=== PATIENT | male | born 1950 | race Caucasian/White ===

== ENCOUNTER 2019-02-12 07:34 | Observation (INO) | payer MEDICARE, OTHER ==
[2019-02-12] VITALS (15 sets, daily range): BP systolic 110–140; BP diastolic 60–75
[~2019-02-12] VITALS: Ht 180.3 cm; Wt 103.0 kg
--- NOTE | ~2019-02-12 | H ---
[address] [address] HISTORY AND PHYSICAL Name: MELONIE MIMS Room: [address] Courtney Zuniga#: [id number] Admission: 02/12/19 Attend Phys: Eitan Frias MD, Discharge: 02/13/19 Date of : 50 Report #: [id number] THIS REPORT FOR: //name// Please refer to the History and Physical performed in the physician's office. By: 0638Medical Records Staff CARMINA /PENNIE
[2019-02-12] MEDS ORDERED: RAMIPRIL5 MG PO (08:15)
[2019-02-12] MEDS ORDERED: ASA81BEC PO (08:15)
[2019-02-12 08:17] LABS: HEMATOCRIT 44.1 % (42.0-52.0); HEMOGLOBIN 15.5 gm/dL (14.0-18.0); MCH 31.7 pg (26.0-34.0); MCHC 35.2 g/dL (28.0-37.0); MPV 7.7 fl. (7.2-11.1); RBC 4.9 mil/uL (4.50-6.00); RDW-CV 13.9 % (10.5-14.5); WBC 8.5 thou/uL (4.0-11.0)
[2019-02-12 08:27] LABS: ANION GAP 9 mmol/L (7-16); APTT 25.7 Seconds (25.0-31.3); BUN 14 mg/dL (7-18); CALCIUM 8.6 mg/dL (8.5-10.1); CHLORIDE 103 mmol/L (98-107); CO2 27 mmol/L (21-32); CREATININE 1.1 mg/dL (0.6-1.3); GLUCOSE 130 mg/dL (70-99); PROTIME 10.7 Seconds (9.20-11.50); SODIUM 139 mmol/L (136-145)
[2019-02-12 08:40] LABS: ALBUMIN 3.8 g/dL (3.4-5.0); ALKALINE PHOSPHATASE 95 U/L (46-116); CHOLESTEROL 130 mg/dL (<200); HDL CHOLESTEROL 34 mg/dL (>40); LDL CHOLESTEROL 67 mg/dL (<100); SGOT 19 U/L (15-37); SGPT 32 U/L (30-65); TC:HDL 3.8 Ratio (Not establshd); TOTAL BILIRUBIN 0.9 mg/dL (<0.1-1.0); TOTAL PROTEIN 7.4 g/dL (6.4-8.2); TRIGLYCERIDE 148 mg/dL (<150); VLDL 30 mg/dL (<40)
[2019-02-12 08:44] LABS: SERUM ASSESSMENT Clear
--- NOTE | 2019-02-12 11:04 | EKG ---
[place] [address] ELECTROCARDIOGRAM REPORT Name: MELONIE MIMS Room: [facility]#: [id number] Admission: 02/12/19 Attend Phys: Eitan Frias MD, Discharge: Date of : 50 Report #: [id number] THIS REPORT FOR: //name// [facility] Test Date: 2019-02-12 Test Time: 08:02:54 Pat Name: MELONIE MIMS Department: Room: Gender: M Instructional Systems Specialist: RT : 1950 Requested By: Eitan Frias Order Number: [id number] Hemal MD: David Nieves Measurements Intervals [place] Rate: 64 P: 14 PA: 146 QRS: -9 QRSD: 110 T: 50 QT: 416 QTc: 430 Interpretive Statements Sinus rhythm RSR' in V1 or V2, right VCD or RVH Baseline wander in lead(s) V3 No previous ECG available for comparison Electronically Signed On 02-12-2019 11:04:12 BARGE ENGINEER by David Nieves [email or web address] <ELECTRONICALLY SIGNED> By: David Nieves MD, [facility] 02/12/19 1104 1 1 David Nieves MD, [facility] /EPI
--- NOTE | 2019-02-12 15:42 | EKG ---
[place] [address] ELECTROCARDIOGRAM REPORT Name: MELONIE MIMS Room: [address]R.#: [id number] Admission: 02/12/19 Attend Phys: Eitan Frias MD, Discharge: Date of : 50 Report #: [id number] THIS REPORT FOR: //name// [facility] Test Date: 2019-02-12 Test Time: 13:20:23 Pat Name: MELONIE MIMS Department: Room: [facility] Gender: M Hotel Operation Manager: RT : 1950 Requested By: Eitan Frias Order Number: [id number] Hemal MD: Eitan Frisa Measurements Intervals [place] Rate: 53 P: 39 SC: 162 QRS: -9 QRSD: 105 T: 54 QT: 450 QTc: 423 Interpretive Statements Sinus rhythm RSR' in V1 or V2, right VCD Compared to ECG 02/12/2019 08:02:54 No significant changes Electronically Signed On 02-12-2019 15:42:37 PAYLOADER OPERATOR by Eitan Frias [email or web address] <ELECTRONICALLY SIGNED> By: Eitan Frias MD, [facility] 02/12/19 1542 1320 1320 Eitan Frias MD, FAC /EPI
[2019-02-13] VITALS: BP 134/73
[2019-02-13 04:00] VITALS: BP 139/78
[2019-02-13 05:46] LABS: HEMATOCRIT 41.8 % (42.0-52.0); HEMOGLOBIN 14.3 gm/dL (14.0-18.0); MCH 31.5 pg (26.0-34.0); MCHC 34.3 g/dL (28.0-37.0); MCV 91.6 fL (80.0-100.0); MPV 7.7 fl. (7.2-11.1); RBC 4.56 mil/uL (4.50-6.00); RDW-CV 13.7 % (10.5-14.5); WBC 10.4 thou/uL (4.0-11.0)
[2019-02-13 06:06] LABS: ALBUMIN 3.4 g/dL (3.4-5.0); CALCIUM 8.2 mg/dL (8.5-10.1); CREATININE 1.1 mg/dL (0.6-1.3); POTASSIUM 4.2 mmol/L (3.5-5.1); TOTAL BILIRUBIN 0.9 mg/dL (<0.1-1.0); TOTAL PROTEIN 6.6 g/dL (6.4-8.2)
[2019-02-13 06:09] LABS: TROPONIN-I LEVEL 0.99 ng/mL (<0.06)
[2019-02-13 08:17] VITALS: BP 132/76
[2019-02-13 10:09] VITALS: BP 132/76
[2019-02-13] MEDS ORDERED: EFFIENT10 MG PO (11:22)
[2019-02-13 11:29] VITALS: BP 132/76
[2019-02-13] MEDS ORDERED: LIPITOR40 MG PO (11:42)
[2019-02-13] MEDS ORDERED: PRINIVIL5 MG PO (11:46)
[2019-02-13] MEDS ORDERED: NITROSTAT0.4 M1 SUBLING (11:53)
--- NOTE | 2019-02-13 16:58 | EKG ---
[place] [address] ELECTROCARDIOGRAM REPORT Name: MELONIE MIMS Room: [address]#: [id number] Admission: 02/12/19 Attend Phys: Eitan Frias MD, Discharge: 02/13/19 Date of : 50 Report #: [id number] THIS REPORT FOR: //name// [facility] Test Date: 2019-02-13 Test Time: 05:05:22 Pat Name: MELONIE MIMS Department: Room: [facility] Gender: M Boat Worker: RONDA : 1950 Requested By: Eitan Frias Order Number: [id number] Hemal MD: David Nieves Measurements Intervals [place] Rate: 57 P: 22 MN: 160 QRS: 7 QRSD: 113 T: 53 QT: 438 QTc: 427 Interpretive Statements Sinus rhythm Borderline intraventricular conduction delay Abnormal R-wave progression, early transition Compared to ECG 02/12/2019 13:20:23 No significant changes Electronically Signed On 02-13-2019 16:57:51 REAL ESTATE OFFICER by David Nieves [email or web address] <ELECTRONICALLY SIGNED> By: David Nieves MD, FACC 02/13/19 1657 0505 0505 David Nieves MD, [facility] /EPI
--- NOTE | 2019-02-14 13:47 | CARD ---
[facility] [address] [place] [address] CARDIAC CATH REPORT Name: MELONIE MIMS Room: [address] Courtney Zuniga#: [id number] Admission: 02/12/19 Attend Phys: Eitan Frias MD, Discharge: 02/13/19 Date of : 50 Report #: [id number] THIS REPORT FOR: //name// APPROVED REPORT Study performed: 02/12/2019 09:18:50 Patient Details Patient Status: Observation Room #: Event Personnel Dr. Frias Procedures Performed Left heart catheterization left ventriculography selective coronary arteriography graft study and percutaneous coronary intervention to the distal left main coronary artery Indication Positive stress test Risk Factors Hypercholesterolemia, Hypertension Previous Procedures/Diagnoses Previous CABG Admission/Lab Medications/Medications given during procedure Angiomax bolus and infusion Procedure Narrative The patient was brought electively to the Cardiac Catheterization Laboratory and was prepped and draped in a sterile manner. The right femoral was infiltrated with 2% Lidocaine subcutaneous anesthesia. A 6 Somali sheath was inserted into the right femoral artery. Coronary angiography was performed using coronary diagnostic catheters. The right coronary system was accessed and visualized with a Diagnostic catheter. The left coronary system was accessed and visualized with a Diagnostic catheter. The left ventricle was accessed and visualized with a Diagnostic catheter. Left ventricular/Aortic Valve gradient assessed via catheter pullback. Left ventriculogram was performed in ELLISON projection. Pre-demployment femoral angiogram was performed . Closure device was deployed with a 6 Fr Angioseal. There was no hematoma. SRIVASTAVA graft Was cannulated with a 6 Somali SRIVASTAVA graft diagnostic catheter and a 6 Somali AR-1 was utilized [place] [address] CARDIAC CATH REPORT Name: MELONIE MIMS Room: [address] Courtney Zuniga#: [id number] Admission: 02/12/19 Attend Phys: Eitan Frias MD, Discharge: 02/13/19 Date of : 50 Report #: [id number] the right coronary artery Coronary Angiography The patient's coronary anatomy is right dominant. [place] Artery Percent Stenosis #1 Widely patent SRIVASTAVA graft to the LAD #2 patent saphenous vein graft the right coronary artery with 30% mid graft narrowing #3 occlusion of the previously constructed graft to the circumflex Diagnostic Cath Left Main 90% heavily calcified distal stenosis LAD 75% proximal stenosis with 100% mid vessel occlusion Circumflex 50% proximal narrowing Right Coronary 100% proximal occlusion Left Ventriculography The left ventricle is normal in size with normal contractility. The left ventricular ejection fraction is estimated to be 65-70%. Left ventricular wall motion abnormalities are not present. There is no mitral insufficiency. Hemodynamics The aortic pressure is 140/70 mmHg with a mean of 82 mmHg. The left ventricular end diastolic pressure is 7 mmHg. There was no gradient across the aortic valve upon pullback. PCI Technique Lesion Anticoagulation was achieved with Angiomax. Percutaneous coronary intervention was performed on the distal left main coronary artery. The lesion stenosis prior to intervention was 90% with SONNY 3 flow. A 3.5 EBU Guide Catheter was used to engage the left ostium. BALLOON DILATION A Balloon catheter 2.25 x 12 mm trek, 3.0 x 12 NC euphora was inserted and inflated up to 16-18atm for 15seconds. 2.5 x 10 mm angiosculpt scoring balloon inflated to 18 janette STENT DEPLOYMENT A drug-eluting stent 2.5 x 18 xience darian 14 was inserted and inflated up to 16atm for 15seconds. [place] [address] CARDIAC CATH REPORT Name: MELONIE MIMS Room: [address] Efrain#: [id number] Admission: 02/12/19 Attend Phys: Eitan Frias MD, Discharge: 02/13/19 Date of : 50 Report #: [id number] POST STENT DEPLOYMENT BALLOON DILATION A Balloon catheter 3.25x8 NC trek was inserted and inflated up to 18atm for 10seconds. Final angiography reveals 10 % stenosis with SONNY 3 flow. COMMENTS PCI was technically complex by virtue of the severe calcification of the distal LMCA requiring significant lesion preparation prior to stent deployment cutaneous coronary intervention Conclusion #1 significant multivessel coronary disease characterized by the following: A 90% heavily calcified distal left main coronary artery narrowing B 75% proximal with 100% mid LAD occlusion C 50% proximal circumflex narrowing D dominant right coronary artery with 100% proximal occlusion #2 graft study characterized by the following: A widely patent SRIVASTAVA graft to the LAD B patent saphenous vein graft to the right coronary artery with 30% mid graft narrowing C Occlusion of the previously constructed vein graft to the circumflex #3 normal left ventricular systolic function, estimate ejection fraction being 65-70% #4 successful atherotomy/atherectomy with stenting of the distal left main with 10% residual narrowing following final stent deployment Recommendations Cardiac Risk Reduction Program Aggressive Medical Therapy [place] [address] CARDIAC CATH REPORT Name: MELONIE MIMS [address] [id number] Admission: 02/12/19 Attend Phys: Eitan Frias MD, Discharge: 02/13/19 Date of : 50 Report #: [id number] Aspirin (any) Prasugrel Diagnostic Cath Approved by: Eitan Frias MD Date/Time: 02/14/2019 13:44:43 <ELECTRONICALLY SIGNED> By: Eitan Frias MD, [facility] 02/14/19 1347 1347 1347Eitan Frias MD, FACC /INF
--- NOTE | 2019-02-14 15:32 | D ---
[facility] [address] [place] [address] DISCHARGE SUMMARY Name: MELONIE MIMS Room: [address] Courtney Zuniga#: [id number] Admission: 02/12/19 Attend Phys: Eitan Frias MD, Discharge: 02/13/19 Date of : 50 Report #: [id number] THIS REPORT FOR: //name// CC: Eitan Frias Justino Yatesram DATE OF SERVICE: 02/13/2019 FINAL DISCHARGE DIAGNOSES: 1. Abnormal nuclear stress test. 2. Chest pain, reflecting recurrent angina. 3. Coronary artery disease. 4. Status post coronary artery bypass grafting. 5. Status post percutaneous coronary intervention with stenting of the distal left main. 6. Hypertension. 7. Left carotid stenosis. 8. Hyperlipidemia. 9. Obesity. PROCEDURES: On 02/12/2019 -- left heart catheterization, left ventriculography, selective coronary arteriography, graft study, and percutaneous coronary intervention of the distal left main coronary artery with stenting of the distal left main into the proximal circumflex. 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 Recent stress echocardiogram was abnormal with marked ST-T changes in inferolateral hypokinesis on echocardiographic assessment. In this context, I recommended cardiac catheterization, which was performed on 02/12/2019. That study revealed total occlusion of the mid LAD and right coronary artery with a widely patent SRIVASTAVA graft to the LAD, widely patent vein graft to the right coronary artery and total occlusion of the previously constructed vein graft to the circumflex. There was 90% heavily calcified distal circumflex stenosis leading into a moderate sized nondominant circumflex. Given this data, I elected to proceed with percutaneous coronary intervention performing atherectomy with stenting of the distal left main with 10% residual narrowing following final stent deployment into the circumflex, distal left main into the circumflex. The patient did well post-procedurally with a minimal increase in troponin I at 0.99. Additional lab revealed sodium 140, potassium 4.2, BUN 13, and creatinine 1.1. Hemoglobin 14.3, white blood cell count 10,400 and platelets 173,000. The patient ambulated in the hallways without difficulty [place] [address] DISCHARGE SUMMARY Name: MELONIE MIMS Room: [address] Courtney Zuniga#: [id number] Admission: 02/12/19 Attend Phys: Eitan Frias MD, Discharge: 02/13/19 Date of : 50 Report #: [id number] ecchymosis at the right femoral site. He is scheduled to return to see my nurse practitioner, Dipti Deleon, on 02/28/2019 at 0900 and myself on 03/20/2019. He is discharged to home on aspirin 81 mg daily, atorvastatin 80 mg at bedtime, prasugrel 10 mg daily with 60 mg librado-procedural dose, and ramipril 5 mg daily. Therefore, the patient is discharged to home in stable condition on the aforementioned medications with followup as iterated above. <ELECTRONICALLY SIGNED> By: Eitan Frias MD, FACC 02/14/19 1532 1116 1133Joconchita Frias MD, FAC /nt
== END 2019-02-13 12:20 | disposition home or self-care (01) ==
LOC: M.CL 07:34 → EDSEX 09:00 → M.CL 09:00 → M.TBA-CV 11:53 → M.2W 12:22
PROVIDERS: ADMIT Internal Medicine
DX: I25.720 Atherosclerosis of autologous artery coronary artery bypass graft(s) with unstable angina pectoris (principal); R94.39 Abnormal result of other cardiovascular function study; E78.00 Pure hypercholesterolemia, unspecified; I65.22 Occlusion and stenosis of left carotid artery; E66.9 Obesity, unspecified; Z68.30 Body mass index [BMI] 30.0-30.9, adult

== ENCOUNTER 2020-07-01 07:38 | Observation (INO) | payer MEDICARE, OTHER ==
[2020-07-01] VITALS (13 sets, daily range): BP systolic 113–144; BP diastolic 59–74
[~2020-07-01] VITALS: Ht 180.3 cm; Wt 105.1 kg
--- NOTE | ~2020-07-01 | H ---
[address] [address] HISTORY AND PHYSICAL Name: MELONIE MIMS Room: [address] Courtney Zuniga#: [id number] Admission: 07/01/20 Attend Phys: Eitan Frias MD, Discharge: 07/02/20 Date of : 50 Report #: [id number] THIS REPORT FOR: cc: Viji Pratt MD, Jennifer L MD [facility],Medical Records Staff ~ Please refer to the History and Physical performed in the physician's office. By: [id number] Records Staff [facility] /PENNIE
--- NOTE | ~2020-07-01 | D ---
[address] [address] DISCHARGE SUMMARY Name: MELONIE MIMS Odalis Room: [address] Courtney Zuniga#: [id number] Admission: 07/01/20 Attend Phys: Eitan Frias MD, Discharge: 07/02/20 Date of : 50 Report #: [id number] THIS REPORT FOR: cc: Viji Pratt MD, Jennifer L MD Holkins,Eitan Hernandez MD [facility] ~ DOC #: [id number] Eitan Frias MD [facility] DATE OF DISCHARGE: 07/02/2020 FINAL DISCHARGE DIAGNOSES: 1. Abnormal nuclear stress test. 2. Coronary artery disease status post coronary artery bypass grafting and PCI. 3. Hyperlipidemia. 4. Diabetes. 5. Left carotid stenosis. 6. Hypertension. PROCEDURES: 07/01/2020 -- left heart catheterization, left ventriculography, selective coronary arteriography, graft study, and percutaneous coronary intervention of the distal left main coronary artery with atherectomy, and stenting performed. 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 He has a history of known coronary artery disease, status post remote coronary artery bypass grafting and subsequent PCI to the distal left main and circumflex 16 months ago. Recently, nuclear stress test was performed, the patient demonstrated a large induced lateral defect. In this context with the risk factors, diabetes, hyperlipidemia, and obesity, cardiac catheterization was performed on 07/01/2020. That study revealed severe coronary artery disease characterized by 80% distal main coronary artery stenosis at the junction of the circumflex, 100% mid LAD occlusion and 100% proximal right coronary occlusion. There was a widely patent SRIVASTAVA graft to the LAD with 40% distal LAD narrowing and a patent saphenous vein graft to the distal right coronary artery with 30% mid graft narrowing. Given the significant stenosis of the left main into the circumflex, performed angioplasty, arthrotomy/atherectomy and stenting. The ostium of the circumflex ____ 3.0 x 8 mm Hammond drug-eluting stent, postdilated to 3.5 mm with 10% residual narrowing and SONNY 3 flow to the distal vessel. Troponin zoey minimally to 0.44. Additional labs revealed sodium 140, potassium 3.7, BUN 15, creatinine 0.9, glucose 91. White blood cell count 8100, hemoglobin 13.5, hematocrit 40.3, platelets 173,000. He ambulated in [place] [address] DISCHARGE SUMMARY Name: MELONIE MIMS Odalis Room: [address] Efrain#: [id number] Admission: 07/01/20 Attend Phys: Eitan Frias MD, Discharge: 07/02/20 Date of : 50 Report #: [id number] The patient was discharged to home on 07/02/2020 on the following medications: Ramipril 5 mg daily, aspirin 81 mg daily, prasugrel or Effient 10 mg daily with 30 mg periprocedural dose having been given, atorvastatin 80 mg daily, fish oil 1000 mg daily, vitamin D3 one tablet daily, and metformin 500 mg b.i.d. to be resumed on 07/03/2020. I will plan to see the patient in followup on 07/29/2020 at 1400 at [facility]. Therefore, the patient is discharged home in stable condition on the aforementioned medications with followup visit as arranged above. Eitan Frias MD [facility]/SHANDA/ANNE-MARIE By: 0837 [id number] Frias MD, [facility] /nt
[~2020-07-01 07:38] MED LIST: ASA81BEC PO; EFFIENT10 MG PO; FISH OIL 1,001000 M3 PO; ISO D3 2,000 U1 EACH PO; LIPITOR40 MG PO; LIPITOR80 MG PO; NITROSTAT0.4 M1 SUBLING; PRINIVIL5 MG PO; RAMIPRIL5 MG PO
[2020-07-01 08:28] LABS: HEMATOCRIT 46.6 % (42.0-52.0); HEMOGLOBIN 15.5 gm/dL (14.0-18.0); MCH 31.4 pg (26.0-34.0); MCHC 33.3 g/dL (28.0-37.0); MCV 94.4 fL (80.0-100.0); RBC 4.94 mil/uL (4.50-6.00); RDW-CV 13.8 % (10.5-14.5); WBC 7.5 thou/uL (4.0-11.0)
[2020-07-01 08:33] LABS: ANION GAP 11 mmol/L (7-16); BUN 20 mg/dL (7-18); CALCIUM 8.8 mg/dL (8.5-10.1); CHLORIDE 102 mmol/L (98-107); CO2 27 mmol/L (21-32); GLUCOSE 127 mg/dL (70-99); POTASSIUM 3.7 mmol/L (3.5-5.1); SODIUM 140 mmol/L (136-145)
[2020-07-01 08:36] LABS: APTT 23.6 Seconds (25.0-31.3); PROTIME 10.6 Seconds (9.20-11.50)
[2020-07-01] MEDS ORDERED: METFORMIN HCL500 M3 PO (08:36)
[2020-07-01 08:38] LABS: ALBUMIN 4.2 g/dL (3.4-5.0); ALKALINE PHOSPHATASE 119 U/L (46-116); CHOLESTEROL 105 mg/dL (<200); HDL CHOLESTEROL 34 mg/dL (>40); LDL CHOLESTEROL 34 mg/dL (<100); SERUM ASSESSMENT Clear; SGOT 21 U/L (15-37); SGPT 37 U/L (30-65); TC:HDL 3.1 Ratio (Not establshd); TOTAL BILIRUBIN 0.8 mg/dL (<0.1-1.0); TOTAL PROTEIN 8.1 g/dL (6.4-8.2); TRIGLYCERIDE 187 mg/dL (<150); VLDL 37 mg/dL (<40)
--- NOTE | 2020-07-01 16:47 | CARD ---
[address] [address] CARDIAC CATH REPORT Name: MELONIE MIMS Odalis Room: [address] Courtney Zuniga#: [id number] Admission: 07/01/20 Attend Phys: Eitan Frias MD, Discharge: Date of : 50 Report #: [id number] THIS REPORT FOR: cc: Viji Pratt MD, Jennifer L MD Holkins,Eitan Hernandez MD [facility] ~ APPROVED REPORT Study performed: 07/01/2020 09:00:49 Patient Details Patient Status: Out-Patient Room #: The patient is a 70 year-old male Event Personnel Eitan Frias Data Processing Auditor, Sharla Mcdermott RN National Van Truck Driver, Surinder Adorno ScrubVika Becki RTChristina Monitor Procedures Performed Art Access - R femoral artery, Left Heart Cath Coronaries, Bypass Grafts LHCCORCABG , NANCY w/Atherectomy Single Left Main , DESATH Hemostasis w/ Angioseal Indication Positive stress test Previous Procedures/Diagnoses Previous CABGPrevious PCI Admission/Lab Medications/Medications given during procedure Angiomax IV 16 ml, Angiomax Drip IV 36.05 ml per hr, Effient PO 30 mg, Aspirin PO 81 mg Procedure Narrative The patient was brought electively to the Cardiac Catheterization Laboratory and was prepped and draped in a sterile manner. The right femoral was infiltrated with 2% Lidocaine subcutaneous anesthesia. A 6fr Ultimum sheath was inserted into the right femoral artery. Coronary angiography was performed using coronary diagnostic catheters. The right coronary system was accessed and visualized with a 6F JR4 catheter. The left coronary system was accessed and visualized with a 6F JL4 catheter. The left ventricle was accessed and visualized with a 6F Pigtail catheter. Left ventricular/[place] [address] CARDIAC CATH REPORT Name: MELONIE MIMS Room: [address]#: [id number] Admission: 07/01/20 Attend Phys: Eitan Frias MD, Discharge: Date of : 50 Report #: [id number] Valve gradient assessed via catheter pullback. Left ventriculogram was performed in ELLISON projection. Pre-demployment femoral angiogram was performed . Closure device was deployed with a 6 Fr Angioseal STS. The patient tolerated the procedure well and there were no complications associated with the procedure. There was no hematoma. The saphenous vein grafts were visualized with a 6F AR1 MOD catheter. The SRIVASTAVA graft was visualized with a 6F IM catheter. Intraoperative Conscious Sedation Sedation start time: 09:20 Case end Time: 10:28 Fentanyl 50 mcg Versed 2 mg Fluoro Time: 18.1 minutes Dose: DAP [id number] cGycm2 3800 mGy Contrast Type and Amount: Omnipaque 400 ml [place] Artery Percent Stenosis 1. Widely patent SRIVASTAVA graft to the LAD with 40% distal LAD narrowing 2. Widely patent saphenous vein graft to the distal right core artery with 30% mid graft narrowing 3 previously defined total occlusion of the vein graft to the circumflex Diagnostic Cath Left Main 80% distal left main in-stent restenosis extending into the ostium of the circumflex LAD 75% tortuous proximal narrowing with 100% mid vessel occlusion Circumflex 40% proximal narrowing Right Coronary 100% proximal occlusion Left Ventriculography The left ventricle is normal in size with normal contractility. The left ventricular ejection fraction is estimated to be 65%. Left ventricular wall motion abnormalities are not present. There is no mitral insufficiency. Hemodynamics The aortic pressure is 124/62 mmHg with a mean of 85 mmHg. The left ventricular pressure is 126/-7 mmHg with a mean of mmHg. The left ventricular end diastolic pressure is 5 [place] [address] CARDIAC CATH REPORT Name: MELONIE MIMS Room: [address] Courtney Zuniga#: [id number] Admission: 07/01/20 Attend Phys: Eitan Frias MD, Discharge: Date of : 50 Report #: [id number] PCI Technique Lesion Anticoagulation was achieved with Angiomax. Patient was preloaded with Angiomax IV 16 ml. Percutaneous coronary intervention was performed on the LM. The lesion stenosis prior to intervention was 80% with SONNY 3 flow. A 6FR XB 3.5 100CM Guide Catheter was used to engage the lm ostium. A BMW 190cm Interventional Guidewire was used to cross the lesion. BALLOON DILATION A Balloon catheter NC Trek RX 3.0 X 8 was inserted and inflated up to 17.00atm for 13seconds. Additional Inflation: 20.00atm for 17seconds. An AngioSculpt PTCA scoring balloon 3.0 x 10 was inserted and inflated up to 10 janette for 15 seconds; 12 janette for 13 seconds. STENT DEPLOYMENT A drug-eluting stent Junior RX Stent 3.0X8mm was inserted and inflated up to 15.00atm for 7seconds. Additional Inflation: 17.00atm for 8seconds. Additional Inflation: 18.00atm for 9seconds. POST STENT DEPLOYMENT BALLOON DILATION A Balloon catheter NC Trek RX 3.25X8 was inserted and inflated up to 16.00atm for 11seconds. Additional Inflation: 18.00atm for 12seconds. Additional Inflation: 21.00atm for 17seconds. A NC Trek 3.5 x 8 balloon was inserted and inflated up to 15 janette for 10 seconds; 16 janette for 8 seconds. Final angiography reveals 10 % stenosis with SONNY 3 flow. Conclusion 1. Severe coronary artery disease characterized by the following: A 80% distal left main in-stent restenosis in extending into the ostium of the circumflex B 75% tortuous proximal LAD narrowing with 100% mid vessel occlusion C 40% proximal circumflex narrowing D 100% proximal right coronary occlusion 2. Graft study characterized by the following: [place] [address] CARDIAC CATH REPORT Name: MELONIE MIMS Room: [address] Courtney Zuniga#: [id number] Admission: 07/01/20 Attend Phys: Eitan Frias MD, Discharge: Date of : 50 Report #: [id number] A widely patent SRIVASTAVA graft to the LAD with 40% distal LAD narrowing B widely patent saphenous vein graft to the dominant distal right coronary artery with 30% mid graft narrowing C previously defined total occlusion of the vein graft to the circumflex 3. Normal left-sided hemodynamic study 4. Normal left ventricular systolic function, estimate ejection fraction being 65% 5. Successful PCI with angioplasty atherotomy/atherectomy and deployment of a drug-eluting stent at the site of 80% distal left main coronary stenosis with 10% residual narrowing and SONNY-3 flow to the distal vessel Recommendations Cardiac Risk Reduction Program Aggressive Medical Therapy Medications Administered Aspirin (any) Prasugrel Diagnostic Cath Approved by: Eitan Frias MD Date/Time: 07/01/2020 16:45:06 <ELECTRONICALLY SIGNED> By: Eitan Frias MD, FACC 07/01/20 164 46 164Eitan Frias MD, FACC /INF
[2020-07-02 04:16] LABS: HEMATOCRIT 40.3 % (42.0-52.0); MCH 31.8 pg (26.0-34.0); MCHC 33.6 g/dL (28.0-37.0); MCV 94.8 fL (80.0-100.0); MPV 8.2 fl. (7.2-11.1); RBC 4.25 mil/uL (4.50-6.00); RDW-CV 13.8 % (10.5-14.5); WBC 8.1 thou/uL (4.0-11.0)
[2020-07-02 04:36] LABS: ALBUMIN 3.4 g/dL (3.4-5.0); CREATININE 0.9 mg/dL (0.6-1.3); POTASSIUM 3.7 mmol/L (3.5-5.1); TOTAL BILIRUBIN 0.6 mg/dL (<0.1-1.0); TOTAL PROTEIN 6.4 g/dL (6.4-8.2); TROPONIN-I LEVEL 0.47 ng/mL (<0.06)
[2020-07-02 04:44] LABS: HEMOGLOBIN 13.5 gm/dL (14.0-18.0)
[2020-07-02 04:52] VITALS: BP 120/67
[2020-07-02 11:18] VITALS: BP 120/67
--- NOTE | 2020-07-02 12:09 | EKG ---
[place] [address] ELECTROCARDIOGRAM REPORT Name: MELONIE MIMS Room: [address]#: [id number] Admission: 07/01/20 Attend Phys: Erwin Light Discharge: 07/02/20 Date of : 50 Date of Service: 07/01/20 0849 Report #: [id number] THIS REPORT FOR: //name// [facility] Test Date: 2020-07-01 Test Time: 08:49:16 Pat Name: MELONIE MIMS Department: Room: [facility] Gender: M Vp Director Of Creative Strategy: : 1950 Requested By: Eitan Frias Order Number: [id number] Reading MD: Eitan Frias Measurements Intervals [place] Rate: 60 P: 17 ID: [id number] QRS: -13 QRSD: 101 T: 40 QT: 405 QTc: 405 Interpretive Statements Sinus rhythm Abnormal R-wave progression, early transition Left ventricular hypertrophy Compared to ECG 02/13/2019 05:05:22 Left ventricular hypertrophy now present Electronically Signed On 07-02-2020 12:09:30 CDT by Eitan Frias [email or web address] <ELECTRONICALLY SIGNED> By: Eitan Frias MD, [facility] 07/02/20 1209 0849 0849 Eitan Frias MD, [facility] /EPI
--- NOTE | 2020-07-02 12:11 | EKG ---
[place] [address] ELECTROCARDIOGRAM REPORT Name: MELONIE MIMS Room: [address]#: [id number] Admission: 07/01/20 Attend Phys: Erwin Light Discharge: 07/02/20 Date of : 50 Date of Service: 07/01/20 1151 Report #: [id number] THIS REPORT FOR: //name// [facility] Test Date: 2020-07-01 Test Time: 11:51:50 Pat Name: MELONIE MIMS Department: Room: [facility] Gender: M [employer] Program Coordinator: : 1950 Requested By: Eitan Frias Order Number: [id number] MD: Eitan Frias Measurements Intervals [place] Rate: 55 P: 36 AL: 158 QRS: 11 QRSD: 101 T: 51 QT: 434 QTc: 416 Interpretive Statements Sinus rhythm Consider left atrial enlargement RSR' in V1 or V2, right VCD Compared to ECG 07/01/2020 08:49:16 RSR' in V1 or V2 now present Left ventricular hypertrophy no longer present Electronically Signed On 07-02-2020 12:11:23 CDT by Eitan Frias [email or web address] <ELECTRONICALLY SIGNED> By: Eitan Frias MD, [facility] 07/02/20 1211 1151 115 Eitan Frias MD, [facility] /EPI
--- NOTE | 2020-07-02 12:18 | EKG ---
[place] [address] ELECTROCARDIOGRAM REPORT Name: MELONIE MIMS Room: [address]#: [id number] Admission: 07/01/20 Attend Phys: Erwin Light Discharge: 07/02/20 Date of : 50 Date of Service: 07/02/20 0524 Report #: [id number] THIS REPORT FOR: //name// [facility] Test Date: 2020-07-02 Test Time: 05:24:23 Pat Name: MELONIE MIMS Department: Room: [facility] Gender: M [employer] Application Administrator: [place] : 1950 Requested By: Eitan Frias Order Number: [id number] Hemal MD: Eitan Frias Measurements Intervals [place] Rate: 51 P: 36 VT: 162 QRS: 15 QRSD: 107 T: 48 QT: 446 QTc: 411 Interpretive Statements Sinus rhythm RSR' in V1 or V2, right VCD or RVH Baseline wander in lead(s) V1,V2,V3,V4 Compared to ECG 07/01/2020 11:51:50 No significant changes Electronically Signed On 07-02-2020 12:18:34 CDT by Eitan Frias [email or web address] <ELECTRONICALLY SIGNED> By: Eitan Frias MD, [facility] 07/02/20 1218 3 Eitan Frias MD, [facility] /EPI
== END 2020-07-02 11:28 | disposition home or self-care (01) ==
LOC: M.CL 07:38 → M.TBA-CV 10:40 → M.2W 13:52
PROVIDERS: ADMIT Internal Medicine; ATTEND Internal Medicine
DX: I25.10 Atherosclerotic heart disease of native coronary artery without angina pectoris (principal); I10 Essential (primary) hypertension; E11.9 Type 2 diabetes mellitus without complications; E78.5 Hyperlipidemia, unspecified; I65.29 Occlusion and stenosis of unspecified carotid artery; Z79.82 Long term (current) use of aspirin; Z79.899 Other long term (current) drug therapy